=== PATIENT | female | born 1985 | race African-American/Black ===

== ENCOUNTER 2016-07-18 02:45 | Inpatient (IN) ==
[2016-07-18 02:57] LABS: URINE SOURCE VOIDED
[2016-07-18 02:59] LABS: BILIRUBIN URINE NEGATIVE (NEGATIVE); BLOOD URINE 4+ (NEGATIVE); CLARITY SL. CLOUDY (CLEAR); COLOR YELLOW; GLUCOSE URINE NEGATIVE (NEGATIVE); LEUKOCYTES URINE 2+ (NEGATIVE); NITRITE URINE NEGATIVE (NEGATIVE); PROTEIN URINE 1+(30 mg/dL) mg/dL (NEGATIVE); UROBILINOGEN URINE NORMAL
[2016-07-18 03:24] LABS: UR AMPHETAMINES QUAL NONE DETECTED (NONE DETECT); UR BARBITUATES QUAL NONE DETECTED (NONE DETECT); UR BENZODIAZEPIN QUAL NONE DETECTED (NONE DETECT); UR CANNABINOIDS QUAL NONE DETECTED (NONE DETECT); UR COCAINE QUAL NONE DETECTED (NONE DETECT); UR MDMA QUAL NONE DETECTED (NONE DETECT); UR METHADONE QUAL NONE DETECTED (NONE DETECT); UR METHAMPHETAMINE QUAL NONE DETECTED (NONE DETECT); UR OPIATES QUAL NONE DETECTED (NONE DETECT); UR OXYCODONE QUAL NONE DETECTED (NONE DETECT); UR PCP QUAL NONE DETECTED (NONE DETECT); UR TCA QUAL PRESUMPTIVE POSITIVE (NONE DETECT)
[2016-07-18] MEDS ORDERED: STADOL IV ONE ×2 (03:27→16:45)
[2016-07-18] MEDS: LR 1,000 ML IV SCH ×2 (04:02→12:15)
[2016-07-18] MEDS ORDERED: PITOCIN 30 UNITS/LR 30 UNITS/500 ML IV.SOLN IV SCH (09:02)
[2016-07-18] MEDS ORDERED: LR 1,000 ML IV SCH (09:02)
[2016-07-18] MEDS ORDERED: REGLAN PO ONE (09:02)
[2016-07-18] MEDS ORDERED: KEFZOL 1 GM/D5W 1 GM/50 ML IVPB IV PRN (09:02)
[2016-07-18] MEDS ORDERED: PEPCID PO ONE (09:02)
[2016-07-18] MEDS ORDERED: TYLENOL PO PRN (09:02)
[2016-07-18] MEDS ORDERED: ZOFRAN IV PRN (09:02)
[2016-07-18] MEDS ORDERED: PEPCID IV PRN (09:02)
[2016-07-18] MEDS ORDERED: PEPCID PO PRN (09:02)
[2016-07-18] MEDS ORDERED: SODIUM CHLORIDE 0.9% INJ SCH (09:30)
[2016-07-18 09:52] LABS: MANUAL DIFF NEEDED? NO
[2016-07-18 09:53] LABS: BASO% 0.1 % (0.0-0.8); EOS# 0.01 X1000 (0.0-0.7); EOS% 0.1 % (0.0-10.0); HEMATOCRIT 32.4 % (37.0-47.0); HEMOGLOBIN 10.8 g/dL (12.0-16.0); IMM GRAN# 0.05 X1000 (0.0-0.04); IMM GRAN% 0.4 % (0.0-0.5); LYMPH% 10.2 % (20.5-51.1); MCH 25.7 PG (27-31); MCHC 33.3 g/dL (33-37); MCV 77.1 FL (81-99); MONO# 1.01 X1000 (0.11-0.59); MONO% 8.6 % (1.7-9.3); MPV 10.2 FL (7.4-10.4); NEUT% 80.6 % (42.2-75.2); PLT 245 X1000 (130-400)
[2016-07-18] MEDS: STADOL IV PRN ×2 (09:59→15:25)
[2016-07-18] MEDS ORDERED: MARCAINE 0.25% PF INJ ONE ×2 (13:00→16:45)
[2016-07-18] MEDS: FENTANYL-BUPIV-NS 2 MCG-0.1% 200 ML EPIDURAL PRN ×2 (13:14→18:38)
[2016-07-18] MEDS ORDERED: MARCAINE 0.25% PF ONE (14:39)
[2016-07-18] MEDS ORDERED: XYLOCAINE-MPF 2% ONE ×2 (14:44→21:55)
[2016-07-18] MEDS ORDERED: FENTANYL-BUPIV-NS 2 MCG-0.1% 200 ML EPIDURAL PRN (16:34)
[2016-07-18] MEDS ORDERED: NESACAINE-MPF 3% INJ ONE (17:59)
[2016-07-18] MEDS ORDERED: FENTANYL IV ONE ×2 (18:24→18:30)
[2016-07-18] MEDS ORDERED: BICITRA ONE (21:37)
--- NOTE | 2016-07-18 21:54 | HISTORY AND PHYSICAL ---
PREOPERATIVE DIAGNOSIS: Intrauterine at 41 weeks and 6 days. HISTORY OF PRESENT ILLNESS: The patient presented to labor and delivery with complaints of contractions. Patient with slow progression and subsequent rupture of membranes. Pitocin was started for augmentation of labor. heart tracing currently 150s with minimal variability. Patient very intolerant of exams and requesting primary abdominal delivery. Risks, benefits and alternatives discussed with the patient and she desires to proceed. PAST MEDICAL HISTORY: None. PAST SURGICAL HISTORY: None. OB HISTORY: G1. TRAFFIC INVESTIGATOR HISTORY: Noncontributory. PHYSICAL EXAMINATION: VITAL SIGNS: Patient afebrile, blood pressure is mildly elevated secondary to pain, patient uncomfortable, respirations nonlabored. ABDOMEN: Soft, gravid, nontender to palpation. : Cervix 4/100/-3 station. ASSESSMENT/PLAN: 1 with intrauterine at 41 weeks and 6 days with a category 2 tracing remote from delivery. Will proceed to the operating room for primary abdominal delivery. cc: Brunilda Rivero MD MTDD
[2016-07-18] MEDS ORDERED: FENTANYL ONE (21:55)
[2016-07-18] MEDS ORDERED: PITOCIN 20 UNITS/LR 20 UNITS/1,000 ML IV.SOLN IV SCH (21:55)
[2016-07-18] MEDS ORDERED: DURAMORPH ONE (21:57)
[2016-07-18] MEDS ORDERED: PITOCIN ONE (21:58)
[2016-07-18] MEDS ORDERED: HYDROXYZINE PO PRN (23:39)
[2016-07-18] MEDS ORDERED: MYLICON PO PRN (23:39)
[2016-07-18] MEDS ORDERED: BOOSTRIX VACCINE IM ONE (23:39)
[2016-07-18] MEDS ORDERED: CYTOTEC PO PRN (23:39)
[2016-07-18] MEDS ORDERED: PITOCIN 20 UNITS/LR 20 UNITS/1,000 ML IV.SOLN IV ONE (23:39)
[2016-07-18] MEDS ORDERED: M-M-R II VACCINE SUBQ ONE (23:39)
[2016-07-18] MEDS ORDERED: PHENERGAN IM PRN (23:39)
[2016-07-18] MEDS ORDERED: PITOCIN IM PRN (23:39)
[2016-07-18] MEDS ORDERED: DULCOLAX PR PRN (23:39)
[2016-07-18] MEDS ORDERED: DEMEROL IM PRN (23:39)
[2016-07-18] MEDS ORDERED: AMBIEN PO PRN (23:39)
[2016-07-18] MEDS ORDERED: DEMEROL PO PRN ×2 (23:39)
[2016-07-18] MEDS ORDERED: HYDROXYZINE IM PRN (23:39)
[2016-07-18] MEDS ORDERED: NORCO-5 PO PRN (23:39)
[2016-07-18] MEDS ORDERED: PITOCIN 10 UNITS/LR 10 UNIT/1,000 ML IV.SOLN IV SCH (23:45)
[2016-07-19] MEDS ORDERED: LR 1,000 ML IV SCH ×2 (00:57→23:39)
[2016-07-19] MEDS ORDERED: ZOFRAN IV PRN (00:57)
[2016-07-19] MEDS ORDERED: NARCAN IV PRN (00:57)
[2016-07-19] MEDS ORDERED: DILAUDID PCA VIAL IV PRN (00:57)
[2016-07-19] MEDS ORDERED: BENADRYL IV PRN (00:57)
[2016-07-19] MEDS: LR 1,000 ML IV SCH (03:29)
[2016-07-19 07:42] LABS: HEMATOCRIT 29.8 % (37.0-47.0); HEMOGLOBIN 9.6 g/dL (12.0-16.0); MCH 25.5 PG (27-31); MCHC 32.2 g/dL (33-37); RBC 3.77 XMIL (4.2-5.4)
[2016-07-19] MEDS: MYLICON PO SCH ×4 (08:37→21:20)
--- NOTE | 2016-07-19 11:25 | PROGRESS NOTE ---
DATE: 07/19/2016 SUBJECTIVE: She is postop day 1 from delivery. She states she is tolerating p.o. She has not yet ambulated or voided but she feels okay. OBJECTIVE: Vital signs: Are stable. She is afebrile. Pulse rate is running in 100s, blood pressure 140s/70s. She is alert and cooperative, no distress. Abdomen: Soft. Uterus is firm. The bandage is in place over the scar. No blood or discharge on the bandage. +2 lower extremity edema. LABORATORY DATA: Hemoglobin 9.6 down just slightly from before delivery and expect routine . cc: MD Brunilda Rod MD
[2016-07-19] MEDS: NORCO-10 PO PRN ×3 (13:30→21:19)
[2016-07-19] MEDS: MOTRIN PO PRN ×2 (13:31→21:19)
[2016-07-19] MEDS: PERICOLACE PO SCH (21:19)
[2016-07-20] MEDS: NORCO-10 PO PRN ×2 (10:18→17:48)
[2016-07-20] MEDS: MYLICON PO SCH ×4 (10:18→21:08)
[2016-07-20] MEDS: MOTRIN PO PRN ×2 (10:18→17:47)
[2016-07-20] MEDS: PERICOLACE PO SCH (21:08)
[2016-07-21] MEDS: MOTRIN PO PRN (04:50)
[2016-07-21] MEDS: NORCO-10 PO PRN ×2 (04:50→09:04)
[2016-07-21] MEDS: MYLICON PO SCH (09:04)
--- NOTE | 2016-07-21 09:32 | OPERATIVE NOTE ---
PROCEDURE DATE: PREOPERATIVE DIAGNOSES: 1. Intrauterine at 41 weeks 6 days. 2. Nonreassuring assessment. POSTOPERATIVE DIAGNOSES: 1. Intrauterine at 41 weeks 6 days. 2. Nonreassuring assessment. PROCEDURE: Primary low segment transverse section. ANESTHESIA: General. ESTIMATED BLOOD LOSS: 400 mL. COMPLICATIONS: None. COUNTS: Correct x2. FINDINGS: A viable male , weighing 8 pounds 2 ounces, with scores of 9 and 9. Grossly normal-appearing uterus, bilateral fallopian tubes and ovaries. INDICATIONS FOR PROCEDURE: The patient is a 30-year-old, 1, with an intrauterine at 41 weeks 6 days, who presented in labor. She underwent subsequent augmentation with Pitocin, however, was noted to have minimal variability with occasional variable decelerations despite conservative management, so the decision was made to proceed to the operating room for primary abdominal delivery. The risks, benefits, and alternatives were discussed with the patient, and she desires to proceed. PROCEDURE IN DETAIL: After proper informed consent was obtained, the patient was taken to the operating room and placed in the dorsal supine position with adequate spinal anesthesia. The abdomen was prepped and draped in a normal sterile fashion for abdominal surgery. After a proper time out was performed, a low transverse incision was made on the skin using the scalpel. This was carried down to the underlying fascia. The fascia was bluntly. Muscle blunting. Peritoneum enter bluntly and stretched using the operators hand. A bladder blade was placed to protect the bladder. A low transverse incision was made on the uterus and stretched using the desktop operator's hand. The infant was delivered in the vertex presentation. Cord was doubly clamped and cut and the infant handed off to the awaiting pediatric staff. Placenta was delivered via fundal massage. Uterus was then exteriorized and cleared of all clot and debris. Hysterotomy was reapproximated using number 1 chromic in a running locking fashion. Posterior cul-de-sac was cleared free of all clot and debris and the uterus returned to the abdomen. The pericolic gutters were cleared free of all clot and debris. Hysterotomy was reinspected and noted to be hemostatic. The peritoneum was reapproximated using 3-0 Vicryl in a running continuous fashion. The muscles were inspected and made hemostatic using Bovie electrocautery. The fascia was then reapproximated using number 1 Vicryl in a running continuous fashion. Subcutaneous tissue was made hemostatic using Bovie electrocautery and interrupted figure-of-8 suture using 3-0 chromic. The subcutaneous tissue was then reapproximated using 3-0 Vicryl in a running continuous fashion. The skin was reapproximated using 4-0 Monocryl in a subcuticular fashion. The patient tolerated the procedure well and was transferred to the recovery room in stable condition. cc: MD LORENZA Medellin
[2016-07-21 11:48] VITALS: BP 132/71
== END 2016-07-21 13:10 | disposition home or self-care (01) ==
LOC: P.NBC 02:45 → P.LD 02:48
PROVIDERS: ADMIT Obstetrics & Gynecology; ATTEND Obstetrics & Gynecology

== ENCOUNTER 2016-07-25 14:49 | Inpatient (IN) ==
--- NOTE | 2016-07-25 15:31 | EKG Report ---
Test Performed on : 07/25/2016 3:27:39 PM Test Reason : CHEST PAIN Blood Pressure : / mmHG Vent. Rate : 085 BPM Atrial Rate : 085 BPM P-R Int : 138 ms QRS Dur : 084 ms QT Int : 372 ms P-R-T Axes : 033 027 033 degrees QTc Int : 442 ms Normal sinus rhythm. Normal ECG No previous ECGs available Unconfirmed Result
[2016-07-25 15:39] LABS: MANUAL DIFF NEEDED? NO
[2016-07-25 15:57] LABS: BASO% 0.3 % (0.0-0.8); EOS# 0.13 X1000 (0.0-0.7); EOS% 1.7 % (0.0-10.0); HEMATOCRIT 32.8 % (37.0-47.0); HEMOGLOBIN 10.8 g/dL (12.0-16.0); IMM GRAN# 0.15 X1000 (0.0-0.04); LYMPH# 1.66 X1000 (1.2-3.4); LYMPH% 22.3 % (20.5-51.1); MCH 25.2 PG (27-31); MCHC 32.9 g/dL (33-37); MCV 76.6 FL (81-99); MONO# 0.59 X1000 (0.11-0.59); MONO% 7.9 % (1.7-9.3); MPV 9.7 FL (7.4-10.4); NEUT% 65.8 % (42.2-75.2); PLT 341 X1000 (130-400); RBC 4.28 XMIL (4.2-5.4)
[2016-07-25 16:05] LABS: AGAP 14; ALBUMIN 3.3 g/dL (3.5-5.0); ALKALINE PHOSPHATASE 137 U/L (32-104); BUN 9 mg/dL (8-22); CALCIUM 8.5 mg/dL (8.8-10.2); CHLORIDE 103 mmol/L (98-107); CK PROFILE 73 U/L (24-173); COSMO 278; GOT 20 U/L (10-30); GPT 25 U/L (10-36); MAGNESIUM 1.9 mg/dL (1.5-2.7); POTASSIUM 3.6 mmol/L (3.5-5.1); SODIUM 140 mmol/L (136-145); TCO2 23 mmol/L (25-35); TOTAL PROTEIN 7.2 g/dL (6.3-8.3)
--- NOTE | 2016-07-25 16:05 | Diag Imaging Result Doc PS360 ---
EXAM: CHEST-2 VIEWS HISTORY: post op csection 07/18, sob TECHNIQUE: COMPARISON: None. FINDINGS: Poor inspiratory effort. There are infiltrates in the mid right lung and base. Heart is mildly prominent. There may be tiny pleural effusions blunting the posterior gutters. IMPRESSION: Small right lung infiltrates with mild cardiac prominence Electronically signed by Rohan Carrizales 07/25/2016 4:02 PM
[2016-07-25 16:15] LABS: INR 0.99 (0.86-1.15); PROTIME 13.4 Seconds (12.1-15.5)
[2016-07-25 16:16] LABS: PTT PL 30.4 Seconds (22.6-43.9)
[2016-07-25 16:41] LABS: BILIRUBIN URINE NEGATIVE (NEGATIVE); BLOOD URINE 4+ (NEGATIVE); CLARITY SL. CLOUDY (CLEAR); COLOR YELLOW; GLUCOSE URINE NEGATIVE (NEGATIVE); LEUKOCYTES URINE 1+ (NEGATIVE); NITRITE URINE NEGATIVE (NEGATIVE); PROTEIN URINE NEGATIVE (NEGATIVE); UROBILINOGEN URINE 4+(12 mg/dL)
[2016-07-25 16:54] LABS: URINE CAST NONE SEEN /LPF; URINE CRYSTAL NONE SEEN /HPF; URINE CULTURE PL NEEDED? YES; URINE EPITHELIAL CELLS >10 /HPF (<10); URINE SOURCE CLEAN CATCH
[2016-07-25 16:59] LABS: BLOOD TYPE ARTERIAL; SAMPLE BLOOD
[2016-07-25 17:12] LABS: ALLEN TEST YES; MODALITY ROOM AIR
[2016-07-25] MEDS ORDERED: LASIX IV ONE (17:37)
[2016-07-25 17:38] LABS: PCO2(98.6) 32 mmHg (35-45); PO2(98.6) 56 mmHg (60-100)
[2016-07-25 17:40] LABS: O2(CT) 12.3 mL/dL (15.0-23.0); THB 9.6 g/dL (11.5-17.4)
[2016-07-25 17:41] LABS: DRAW SITE R RADIAL
[2016-07-25] MEDS: ROCEPHIN 1 GM/NS 1 GM/50 ML IVPB IV SCH (17:49)
--- NOTE | 2016-07-25 18:31 | PROVIDER DOCUMENTATION ---
This chart was entered by Valerie Winston Scribe, acting as scribe for Hailey Bear PA. HPI-General Adult - General Chief Complaint: Post Op Complaint Stated Complaint: pain from c section site Time Seen by Provider: 07/25/16 15:15 Source: patient Allergies/Adverse Reactions: Patient Allergies Allergy/AdvReac Type Severity Reaction Status Date / Time latex Allergy RASH Verified 07/18/16 03:10 Home Medications: Home Medication List Medication Instructions Recorded Confirmed Last Taken Type Acetaminophen [Tylenol] 1,000 mg PO Q6H PRN PRN 07/18/16 07/18/16 07/17/16 23: 00 History Cyclobenzaprine [Flexeril] 10 mg PO PRN PRN 07/18/16 07/18/16 07/17/16 22:30 History Hydrocodone/APAP 5 mg/325 mg 1 each PO Q6H PRN PRN #30 tablet 07/21/16 Unknown Rx [Dante-5] Ibuprofen [Motrin] 800 mg PO Q8H PRN PRN #30 tablet 07/21/16 Unknown Rx - History of Present Illness -Gen Adult Nature of Presenting Problems: Pt is 30 y/o F presents to the ED with weakness, chest tightness, and swelling of hands and feet. Pt states having a c section on July 18. Pt states symptoms started after surgery. Pt denies F Location of Pain/Injury: reports: generalized Pain Radiation: reports: no radiation Quality of Pain: reports: aching Severity: reports: mild Onset/Duration: reports: 6 days ago Timing: reports: still present Context/Activities at Onset: reports: light activity Modifying Factors: improves with: nothing Associated Symptoms: reports: shortness of breath, weakness, other (chest tightness and swelling hands and feet). denies: anxiety, arm pain, back/neck pain, chest pain, constipation, cough, diaphoresis, diarrhea, dizziness, EENT symptoms, fatigue, fever/chills, genitourinary problems, headaches, heartburn, joint pain, loss of appetite, malaise, muscle aches, sinus congestion/drainage, nausea, rash, seizure, sensory/motor loss, pain with inspiration, swelling/mass in abdomen, syncope, vomiting, trouble walking Similar Symptoms Previously?: Yes Recently seen or treated by another doctor?: No Review of Systems - Adult - REVIEW OF SYSTEMS - ADULT Constitutional: denies: chills, fever Eyes: denies: blurred vision, double vision Ears, Nose, Mouth & Throat: denies: ear pain, nose pain, throat pain Cardiovascular: reports: other (chest tightness). denies: chest pain, heart murmur, irregular heart rate Respiratory: reports: shortness of breath. denies: cough, wheezing Gastrointestinal: denies: abdominal pain, diarrhea, nausea, vomiting Genitourinary: denies: dysuria, hematuria Musculoskeletal: reports: muscle weakness. denies: bone pain, joint swelling, neck pain Integumentary: reports: other (swelling of hands and feet). denies: hives, itching, rash Neurological: denies: dizziness/vertigo, headache/migraines, numbness, seizure, tremors Psychiatric: denies: anxiety, depression Endocrine: reports: no symptoms reported Hematologic/Lymphatic: reports: no symptoms reported Allergic/Immunologic: reports: no symptoms reported All Other Systems: Reviewed and Negative Past History - Adult - PAST MEDICAL HISTORY-ADULT Review of Records: reports: Nursing Assessment Review, Medications Reviewed, Social history reviewed & non-contributory. Major Childhood Illnesses: reports: denies history Cardiovascular: reports: denies history Respiratory: reports: denies history Gastrointestinal: reports: denies history Obstetrical/Gynecological: reports: denies history, other (about 11 wks with first ) Genitourinary: reports: denies history Musculoskeletal: reports: denies history Neurological: reports: denies history Endocrine/Immune: reports: denies history Other Conditions: reports: denies history - PRIOR HOSPITALIZATIONS Prior Hospitalizations: reports: none - IMMUNIZATION STATUS Childhood Immunizations: See Nurse Assessment Flu Vaccine: See Nurse Assessment - FAMILY HISTORY Family History: reviewed, not pertinent - SOCIAL HISTORY Smoking: denies Substance Use: denies Living Situation: family Physical Exam-General - PHYSICAL EXAM-ADULT Initial Vital Signs Reviewed: Yes - CONSTITUTIONAL General Appearance: appears well, alert, obese, anxious - EYES Eyes: PERRL/EOMI, pink conjunctivae - HEAD, EARS, NOSE, MOUTH & THROAT HENMT: normocephalic/atraumatic, moist mucous membranes - NECK Neck: non-tender, full range of motion, supple. negative: carotid bruit - RESPIRATORY Respiratory: chest non-tender, lungs clear, normal breath sounds - CARDIOVASCULAR Cardiovascular: regular rate, rhythm, no JVD. negative: no edema (3+ pitting edema) - GASTROINTESTINAL (ABDOMEN) Abdominal Exam: normal bowel sounds, soft, other (well healing incision). negative: distended, guarding, rigid, rebound, tenderness, hernia, mass - MUSCULOSKELETAL Back Exam: normal inspection, no vertebral tenderness Extremity: normal gait, pedal edema - SKIN Integumentary: normal color, warm/dry - NEUROLOGIC Neurologic: grossly normal, no motor/sensory deficits - PSYCHIATRIC Psych/Mental Status: normal thought content, normal thought process Progress - PLAN OF CARE/RESULTS Progress/Plan/Lab Results: Vital Signs - 8 hr 07/25/16 14:50 Temperature 98.3 F Pulse Rate 89 Respiratory Rate 30 H Blood Pressure 155/99 O2 Sat by Pulse Oximetry 94 L Orders Category Date Time Status Cardiac Monitoring DIRECTED Care 07/25/16 15:03 Active Oxygen Therapy- ED Nursing DIRECTED Care 07/25/16 15:03 Active Saline Loc NOW Care 07/25/16 15:03 Active CHEST-2 VIEWS [RAD] Stat Exams 07/25/16 15:03 Taken CBC WITH ELECTRONIC DIFF [HEME] Stat Lab 07/25/16 15:34 Results CK PROFILE [SP CHEM] Stat Lab 07/25/16 15:34 Received COMPREHENSIVE METABOLIC PANEL [CHEM] Stat Lab 07/25/16 15:34 Received MAGNESIUM [CHEM] Stat Lab 07/25/16 15:34 Received PRO B-NATRIURETIC PEPTIDE Stat Lab 07/25/16 15:34 Received PROTIME WITH INR PL [COAG] Stat Lab 07/25/16 15:[address] [COAG] Stat Lab 07/25/16 15:34 Received TROPONIN T Stat Lab 07/25/16 15:34 Received EKG [EKG] Stat Ther 07/25/16 15:03 Draft Result Diagrams: 07/25/16 15:34 07/25/16 15:34 - XRAY 1 XRAY Study: Chest Impression: Abnormal XRAY Interpretation: small right lung infiltrates with mild cardiac prominence - CONSULTS/PCP/HOSPITALIST Notification #1 *Consult/PCP/Hospitalist*: Alin Time Discussed: 17:30 Consult Disposition: Admit #2 Consult: Juliette Time Discussed: 17:20 Consult Disposition: other (admit to hospitalist and consult OB as needed) Departure - Departure Date of Disposition Decision: 07/25/16 Time of Disposition Decision: 17:29 DIAGNOSIS: Pneumonia Qualifiers: Pneumonia type: due to unspecified organism Laterality: right Lung location: unspecified part of lung Qualified Code(s): J18.9 - Pneumonia, unspecified organism Disposition: ADMITTED INPATIENT 09 Certified Medical Emergency: Emergent Condition: Stable - Critical Care Note This patient required my direct & personal management of CC.: No Attestation - Physician/ CARLTON Attestation Patient care was provided by Advanced Practice Provider:: Yes Advanced Practice Provider:: Hailey Bear Advanced Practice Provider documentation review:: The Mid-level provider documentation, treatment plan and medical decision making was reviewed by the physician who agrees with all treatment and medical decision making by the MLP. This chart was documented by the indicated scribe, (Valerie Winston Scribe) and accurately reflects the services I performed and decisions made by me, Hailey Bear PA, as attested by the provider's signature.
[2016-07-25] MEDS: PRINIVIL PO SCH (21:55)
[2016-07-26 06:34] LABS: MANUAL DIFF NEEDED? NO
[2016-07-26 06:42] LABS: BASO% 0.4 % (0.0-0.8); EOS# 0.12 X1000 (0.0-0.7); EOS% 1.6 % (0.0-10.0); IMM GRAN# 0.11 X1000 (0.0-0.04); IMM GRAN% 1.5 % (0.0-0.5); LYMPH# 1.86 X1000 (1.2-3.4); LYMPH% 24.7 % (20.5-51.1); MCH 25.6 PG (27-31); MCHC 33.3 g/dL (33-37); MCV 76.9 FL (81-99); MONO# 0.65 X1000 (0.11-0.59); MONO% 8.6 % (1.7-9.3); MPV 9.6 FL (7.4-10.4); NEUT% 63.2 % (42.2-75.2); PLT 334 X1000 (130-400)
[2016-07-26 07:27] LABS: AGAP 14; ALBUMIN 3.2 g/dL (3.5-5.0); ALKALINE PHOSPHATASE 122 U/L (32-104); BUN 8 mg/dL (8-22); CHLORIDE 101 mmol/L (98-107); COSMO 277; GOT 17 U/L (10-30); GPT 20 U/L (10-36); POTASSIUM 3.6 mmol/L (3.5-5.1); SODIUM 140 mmol/L (136-145); TCO2 25 mmol/L (25-35); TOTAL PROTEIN 6.7 g/dL (6.3-8.3)
[2016-07-26] MEDS ORDERED: LASIX IV SCH (08:00)
--- NOTE | 2016-07-26 08:31 | PROGRESS NOTE ---
DATE: 07/26/2016 SUBJECTIVE: Patient notes that she is feeling a little bit better. Still having shortness of breath, but overall improved. Denies any chest pain, palpitations. Denies any fevers or chills. OBJECTIVE: Vital Signs: Temperature 97, pulse 88-102, respiratory rate 18, BP 133/85, saturation 97% on room air. General: Patient is awake, alert, currently lying in bed. She is lying flatly in bed. She is in no respiratory distress. Speech is regular. Memory is intact. Neck: Supple. CV: Regular rate. Chest: Clear. Abdomen: Soft. Extremities: Moves all extremities. Neurologic: No changes. LABS: CBC essentially normal with some low MCV, MCH. Hemoglobin and hematocrit is 10 and 30. CMP is normal. BNP is improved from 1300 down to 794. ASSESSMENT: 1. Presumed UTI with 10-20 white cells. She currently is on Rocephin. 2. Pulmonary edema, likely congestive heart failure after . Echo is pending. 3. ProBNP is improved. 4. Others. PLAN: We will check echo. We will discuss with cardiology. We continued her on Lasix 40 IV twice a day. Started her on lisinopril. Further orders as needed. cc: Stiven Ogden MD
[2016-07-26] MEDS: PRINIVIL PO SCH ×2 (10:24→21:00)
--- NOTE | 2016-07-26 15:14 | ECHO REPORT ---
ORDER DATE: 07/26/2016 INDICATION FOR THE STUDY: Shortness breath, pulmonary edema, elevated proBNP after recent delivery. FINDINGS: 1. Right atrium is normal in size at 3.7 cm. 2. Mild tricuspid regurgitation. The RV systolic pressure was measured at approximately 48 mmHg. 3. The right ventricle appears to be normal in size with normal RV systolic function. 4. I do not see any significant pulmonic insufficiency. 5. The left atrium is mildly enlarged at 4.3 cm. 6. No mitral valve prolapse. There appears to be mild mitral regurgitation. It could be as significant as moderate as it is a somewhat eccentric jet, but it is somewhat difficult to measure. 7. The left ventricle appears to be normal in size with an end-diastolic dimension of 4.0 cm. There is suggestion of mild left ventricular hypertrophy with a posterior and interventricular septal wall thickness of 1.3 and 1.2 cm respectively. The left ventricular systolic function appears to be normal with a calculated EF of 60% and normal wall motion. 8. Aortic valve opens well and appears trileaflet. Do not see any significant stenosis or insufficiency. 9. Aorta appears normal in visualized segments. 10. No pericardial effusion seen. cc: MD Stiven Dias MD
[2016-07-26] MEDS: TYLENOL PO PRN (15:58)
[2016-07-26] MEDS: ROCEPHIN 1 GM/NS 1 GM/50 ML IVPB IV SCH (17:35)
--- NOTE | 2016-07-26 18:04 | HISTORY AND PHYSICAL ---
CHIEF COMPLAINT: Shortness of breath and lower extremity edema. HISTORY OF PRESENT ILLNESS: This is a 30-year-old female who is status post on July 18, 2016. She comes in complaining of weakness, shortness of breath with swelling of her hands and feet. She states that the symptoms started shortly after surgery and have increased over the last 6 days. She does state that shortness of breath and some chest tightness are brought on with any activity. They do improve somewhat with rest. She does have some orthopnea. She denied any palpitations, chest pain, dizziness, or syncope. Chest x-ray revealed pulmonary edema with a right lung infiltrate. She was noted to have a proBNP of 1,300 and a room air saturation of 94% with respirations in the 30s on arrival to the emergency room. She was given Lasix IV. Blood cultures and urine cultures were drawn. Antibiotics were started and she is being admitted for further evaluation and treatment. PAST MEDICAL HISTORY: Denies. PAST SURGICAL HISTORY: July 18, 2016. SOCIAL HISTORY: She denies alcohol, tobacco, or illicit drug use. ALLERGIES: Latex, which causes a rash. HOME MEDICATIONS: [place] 5, Motrin, and Tylenol. REVIEW OF SYSTEMS: A 14 point review of systems is discussed with patient with pertinent positives stated in the HPI. She denied productive cough, fever, chills, palpitations, syncope, dizziness, nausea, vomiting, diarrhea, constipation, black or bloody vomitus, black or bloody stools, any hematuria, dysuria, frequency, urgency. PHYSICAL EXAMINATION: GENERAL: This is a 30-year-old female who is sitting in the bed, in no distress. VITAL SIGNS: Blood pressure is 127/74 with a heart rate of 95, respirations are 18, temperature is 98.3 degrees oral with oxygen saturation of 100% on 2 L nasal cannula. CARDIOVASCULAR: Regular rate and rhythm. S1 and S2 appreciated. PULMONARY: Breath sounds are clear with no increased work of breathing noted. GASTROINTESTINAL: Abdomen is soft, nondistended, nontender, with bowel sounds in all 4 quadrants. BACK: No CVAT. No spine tenderness. MUSCULOSKELETAL: Good range of motion to joints. NEUROLOGIC: She is alert and oriented x3. Cranial nerves 2 through 12 grossly intact. EXTREMITIES: No clubbing, cyanosis. She does have 3+ pitting edema to bilateral lower extremities to just above the knees with pulses palpable and calves nontender. DIAGNOSTICS: WBC is 7.43, with hemoglobin 10.8, hematocrit 32.8, platelets of 341,000. Sodium is 140, potassium 3.6, BUN 9, creatinine 0.6, with a glucose of 89. Troponin is less than 0.010 with a proBNP of 1,300. Urinalysis: Microscopic has 10-20 red blood cells and 10-20 white blood cells with 1+ bacteria, 4+ blood. Chest x-ray revealed small right lung infiltrate with mild cardiac prominence. ASSESSMENT AND PLAN: 1. Right lung infiltrate in the mid and lower lobe. 2. Pulmonary edema, likely congestive heart failure after . 3. Elevated proBNP. 4. Lower extremity edema. PLAN: Echocardiogram will be performed. We will consult cardiology. We will continue Lasix b.i.d. for diuresis. Blood cultures as well as urine cultures have been obtained. She was started on Rocephin. We will continue this. We will continue supplemental oxygen as well as telemetry. Dictated by ALTHEA Triplett for Stiven Ogden MD cc: ALTHEA Triplett MD
[2016-07-26] MEDS ORDERED: PREPARATION H SUPPOSITORY PR ONE (19:33)
[2016-07-26] MEDS ORDERED: PREPARATION H OINT TOP PRN (19:33)
[2016-07-26] MEDS ORDERED: PERI MEDS (DERMOPLAST/NUPERCAINAL/TUCKS) TOP PRN (21:08)
[2016-07-26] MEDS ORDERED: ANUSOL-HC SUPP PR ONE (21:15)
--- NOTE | 2016-07-26 21:27 | CONSULTATION ---
DATE OF CONSULTATION: 07/26/2016 IMPRESSION: 1. Chest congestion with some cough productive of mucus probably more related to atelectasis postoperatively following recent section. 2. Peripheral edema actually resolving gradually prior to patient arriving in hospital. 3. Elevated B-type natriuretic protein level of unclear clinical significance. Echocardiography shows normal left ventricular systolic function and mild mitral regurgitation. 4. Status post recent section in patient's 1st due to failure to progress through labor. RECOMMENDATIONS: 1. No additional cardiovascular studies needed. 2. Patient has normal oxygen saturation on room air. Is reasonable for her to be discharged to home. HISTORY: This 30-year-old female with no prior cardiovascular history was admitted yesterday with complaint of chest congestion and coughing up mucus. She is status post section about a week ago for her 1st due to failure to progress with labor at 42 weeks gestational age. During latter part of her she had developed some edema. She has been slowly mobilizing this and edema has been decreasing since her delivery. She has had some pain related to her incision site, admits that it hurts to cough or take a deep breath. She started having cough productive of clear sputum. She came to the hospital and was admitted. B- type natriuretic peptide level is elevated and is decreasing. She has been diuresed with intravenous Lasix. PAST MEDICAL HISTORY: 1. Negative for hypertension, negative for diabetes, negative for hypercholesterolemia. 2. Obesity. MEDICATIONS: Prior to admission as listed. SURGICAL HISTORY: Includes recent section. SOCIAL HISTORY: She does not smoke or use alcohol. FAMILY HISTORY: Negative for premature heart disease. REVIEW OF SYSTEMS: Pulmonary: Noteworthy for chest congestion and cough productive of clear mucus. Gastrointestinal: Negative. Constitutional: Negative. Remainder of review of systems negative/noncontributory with 14 total systems reviewed. PHYSICAL EXAMINATION: General: This is a obese, adult -[place] female in no distress on room air. Vital Signs: As recorder stable. Oxygen saturation 94% on room air. HEENT: Extraocular movements intact. Mucous membranes are moist. Neck: Supple without jugular distention. There are no carotid bruits. Chest: Clear to auscultation. Cardiac Exam: Reveals a regular rate and rhythm without appreciable murmur or gallop. Abdomen: Soft. Extremities: Demonstrate trace pedal edema. Neurologic Exam: Reveals her to be alert, fully oriented. Speech is fluent. She moves all 4 extremities equally well. Skin: Warm dry. Psychiatric: Reveals mood to be appropriate. DIAGNOSTIC DATA: Echocardiography reports normal left ventricular ejection fraction and mild mitral regurgitation. cc: Ben Khan MD
[2016-07-27] MEDS ORDERED: ANUSOL-HC SUPP PR ONE (01:45)
[2016-07-27] MEDS ORDERED: PREPARATION H OINT TOP PRN (01:54)
[2016-07-27] MEDS ORDERED: PREPARATION H SUPPOSITORY PR ONE (02:00)
[2016-07-27] MEDS: PRINIVIL PO SCH (09:47)
[2016-07-27] MEDS: TYLENOL PO PRN (13:10)
[2016-07-27 16:21] VITALS: BP 120/72
[2016-07-27] MEDS: ROCEPHIN 1 GM/NS 1 GM/50 ML IVPB IV SCH (17:43)
--- NOTE | 2016-08-02 04:58 | DISCHARGE SUMMARY ---
ADMISSION DATE: 07/25/2016 DISCHARGE DATE: 07/27/2016 DIAGNOSES: 1. Right middle and lower lobe infiltrate. 2. Pulmonary edema, likely congestive heart failure after . 3. Elevated proBNP. 4. Lower extremity edema. 5. Status post section. HOSPITAL COURSE: Ms. Ravi is a 30-year-old, female with no prior cardiovascular history who was admitted for chest congestion, cough, and lower extremity edema bilaterally. She is a week status post due to failure progress at 42 weeks gestational age. She did have some lower extremity edema that developed of the latter weeks of her that has been decreasing through the week since delivery. She presented with a proBNP of 1300, with oxygen saturations of 94% on room air but respirations were in the mid 20s to 30s on arrival. She was given supplemental oxygen at this time. She was diuresed. Symptoms did improve. Echocardiogram did reveal normal left ventricular systolic function with mild mitral regurgitation. She was evaluated by cardiology who felt that this was chest congestion with mucus related to atelectasis following surgery, with continued immobilization of generalized edema at the latter end of . He recommended no further cardiovascular workup be performed and that she continue with her hospital regimen of p.o. Lasix. DISCHARGE MEDICATIONS: Prinivil 10 mg b.i.d., [place] 5/325 q.6 hours p.r.n., Lasix 40 mg p.o. p.r.n. edema, Flexeril 10 mg p.o. p.r.n. FOLLOWUP: 1. She needs to follow up with OB as previously instructed. 2. She is to follow up with Dr. Khan in 3-4 weeks. At that time, she will be re-evaluated and instructed on further use of Lasix as well as lisinopril. DISCHARGE ACTIVITY: As tolerated. DISCHARGE DIET: Regular. DISPOSITION: She is being discharged home in stable condition with family members. TIME SPENT: This is a greater than 30 minute discharge. Dictated by ALTHEA Triplett for Stiven Ogden MD cc: ALTHEA Triplett MD
== END 2016-07-27 18:27 | disposition home or self-care (01) ==
LOC: P.ED 14:49 → P.MEDSURG 18:02
PROVIDERS: ATTEND Family Medicine